=== PATIENT | male | born 1990 | race Hispanic/Latino ===

== ENCOUNTER 2018-02-20 11:40 | Emergency (ER) | payer OTHER ==
[2018-02-20] MEDS ORDERED: ceFAZolin IV 1 gm in Dextrose 1 GM/50 ML BAG IVPB STA (13:17)
[2018-02-20] MEDS ORDERED: Sodium Chloride 0.9% 1,000 ML IV STA (13:19)
--- NOTE | 2018-02-20 13:20 | ED PDOC ---
HPI: Abdomen Time Seen by Provider: 02/20/18 13:19 Chief Complaint (Nursing): Abdominal Pain Chief Complaint (Provider): ABDOMINAL PAIN History Per: Patient (27 Y/O MALE HERE WITH PAINFUL PROTRUSION FROM UMBILICUS NOW WITH SURROUNDING ERYTHEMA AND TENDERNESS. DENIES ANY FEVERS/CHILLS.) Past Medical History Reviewed: Historical Data, Nursing Documentation, Vital Signs Vital Signs: Last Vital Signs Temp 96.9 F L 02/20/18 12:41 Pulse 82 02/20/18 12:41 Resp 18 02/20/18 12:41 BP 131/87 02/20/18 12:41 Pulse Ox 99 02/20/18 12:41 - Immunization History Hx Tetanus Toxoid Vaccination: No Hx Influenza Vaccination: No Hx Pneumococcal Vaccination: No - Home Medications Home Medications: Ambulatory Orders Medication Instructions Recorded Cephalexin [Keflex] 500 mg PO TID #21 capsule 02/20/18 Ibuprofen [Motrin] 600 mg PO Q8 PRN #21 tab 02/20/18 Sulfamethoxazole/Trimethoprim 1 tab PO BID #14 tab 02/20/18 [Bactrim DS 800 mg-160 mg] - Allergies Allergies/Adverse Reactions: Allergies Allergy/AdvReac Type Severity Reaction Status Date / Time No Known Allergies Allergy Verified 02/20/18 12:46 Review of Systems ROS Statement: Except As Marked, All Systems Reviewed And Found Negative Physical Exam - Reviewed Nursing Documentation Reviewed: Yes Vital Signs Reviewed: Yes - Physical Exam Appears: Positive for: Well, Non-toxic, No Acute Distress Head Exam: Positive for: ATRAUMATIC, NORMAL INSPECTION, NORMOCEPHALIC Skin: Positive for: Normal Color, Warm, DRY Eye Exam: Positive for: EOMI, Normal appearance, PERRL ENT: Positive for: Normal ENT Inspection Neck: Positive for: Normal, Painless ROM Cardiovascular/Chest: Positive for: Regular Rate, Rhythm Respiratory: Positive for: CNT, Normal Breath Sounds Gastrointestinal/Abdominal: Positive for: Normal Exam, Soft Back: Positive for: Normal Inspection Extremity: Positive for: Normal ROM Neurologic/Psych: Positive for: Alert, Oriented - Laboratory Results Result Diagrams: 02/20/18 13:42 02/20/18 13:42 - ECG O2 Sat by Pulse Oximetry: 99 - Progress ED Course And Treament: IMPRESSION: Periumbilical inflammatory changes extending to the rectus. No drainable collection, discrete tract or fistulous communication. Additional benign and/or incidental findings described above. vancomycin 1 gm ancef 1 gm Disposition - Clinical Impression Clinical Impression: Pyogenic granuloma - Patient ED Disposition Is Patient to be Admitted: No - Disposition Referrals: Shilo Knight MD [Staff Provider] - [facility] [Outside] Disposition: Routine/Home Disposition Time: 17:02 Condition: FAIR Prescriptions: Cephalexin [Keflex] 500 mg PO TID #21 capsule Ibuprofen [Motrin] 600 mg PO Q8 PRN #21 tab PRN Reason: Pain, Moderate (4-7) Sulfamethoxazole/Trimethoprim [Bactrim DS 800 mg-160 mg] 1 tab PO BID #14 tab Instructions: Acute Abdomen (Belly Pain), Adult (DC) Forms: [facility] ED School/Work Excuse
[2018-02-20 13:49] LABS: VENOUS BLOOD GAS BASE EXCESS 1.8 mmol/L (0.0-2.0); VENOUS BLOOD GAS PCO2 53 mmHg (40-60); VENOUS BLOOD GAS PO2 21 mm/Hg (30-55); VENOUS BLOOD PH 7.34 (7.32-7.43)
[2018-02-20 13:50] LABS: BASO # 0.1 K/uL (0.0-0.2); BASO % 0.9 % (0.0-2.0); EOS # 0.1 K/uL (0.0-0.7); EOS % 1.4 % (0.0-4.0); HEMOGLOBIN 14.2 g/dL (12.0-18.0); LYMPH # 3.5 K/uL (1.0-4.3); LYMPH % 47.7 % (20.0-40.0); MEAN CELL VOLUME 85.1 fl (80.0-94.0); MEAN CORPUSCULAR HEMOGLOBIN 28.5 pg (27.0-31.0); MEAN CORPUSCULAR HGB CONC 33.5 g/dL (33.0-37.0); MEAN PLATELET VOLUME 7.6 fl (7.2-11.7); MONO # 0.4 K/uL (0.0-0.8); MONO % 6.1 % (0.0-10.0); NEUT # 3.2 K/uL (1.8-7.0); NEUT % 43.9 % (50.0-75.0); NRBC % 0.1 % (0.0-0.0); RBC 4.98 Mil/uL (4.40-5.90); RED CELL DISTRIBUTION WIDTH 13.2 % (11.5-14.5); WHITE BLOOD COUNT 7.4 K/uL (4.8-10.8)
[2018-02-20 14:03] LABS: ALB/GLOB RATIO 1.2 (1.0-2.1); ALBUMIN 4.3 g/dL (3.5-5.0); ALT/SGPT 29 U/L (21-72); AST/SGOT 27 U/L (17-59); BLOOD UREA NITROGEN 13 mg/dl (9-20); CALCIUM 9.9 mg/dL (8.4-10.2); GFR NON-AFRICAN AMERICAN > 60
[2018-02-20] MEDS ORDERED: Vancomycin 1 g Inj ONE (14:06)
[2018-02-20] MEDS ORDERED: ceFAZolin IV 1 gm in Dextrose 1 GM/50 ML BAG IVPB ONE (14:08)
[2018-02-20] MEDS ORDERED: Sodium Chloride 0.9% 50 ML IV ONE (14:30)
[2018-02-20] MEDS ORDERED: Iohexol 300 100 ML IJ ONE (14:30)
--- NOTE | 2018-02-20 16:01 | CT ---
Date of service: 02/20/2018 PROCEDURE: CT Abdomen and Pelvis with contrast HISTORY: EVALUATE FOR ABDOMINAL ABSCESS PERIUMBILAL umbilical discharge. COMPARISON: None. TECHNIQUE: Intravenous contrast dose: 95 cc Omnipaque 300. Radiation dose: Total exam DLP = 963.76 mGy-cm. This CT exam was performed using one or more of the following dose reduction techniques: Automated exposure control, adjustment of the mA and/or kV according to patient size, and/or use of iterative reconstruction technique. FINDINGS: LOWER THORAX: Unremarkable. LIVER: Hepatic steatosis. No focal masses. No intrahepatic bile duct dilatation or perihepatic ascites. GALLBLADDER AND BILE DUCTS: Unremarkable. PANCREAS: Unremarkable. No gross lesion or ductal dilatation. SPLEEN: Unremarkable. ADRENALS: Unremarkable. No mass. KIDNEYS AND URETERS: Unremarkable. No hydronephrosis. No solid mass. VASCULATURE: Unremarkable. No aortic aneurysm. No atherosclerotic calcification or mural plaque present. BOWEL: Unremarkable. No obstruction. No gross mural thickening. APPENDIX: Normal appendix. PERITONEUM: Unremarkable. No free fluid. No free air. LYMPH NODES: Unremarkable. No enlarged lymph nodes. BLADDER: Unremarkable. Small urachal remnant an incidental finding not clinically consequential. REPRODUCTIVE: Unremarkable. BONES: No acute fracture. OTHER FINDINGS: No drainable collection. Periumbilical inflammatory changes extend to the rectus aponeurosis. No stool sinus tract or fistulous communication to account for umbilical discharge. IMPRESSION: Periumbilical inflammatory changes extending to the rectus. No drainable collection, discrete tract or fistulous communication. Additional benign and/or incidental findings described above.
[2018-02-20 18:20] VITALS: BP 126/78; PULSE 78; RESP 19; TEMP 97.6; O2SAT 98
== END 2018-02-20 18:21 | disposition home or self-care (01) ==
LOC: H.ER 11:40
DX: L98.0 Pyogenic granuloma (principal)
CPT/HCPCS: 74177; 80053; 82803; 85025; 87040; 99282; J0690; J7030; Q9967